=== PATIENT | female | born 1960 | race Caucasian/White ===

== ENCOUNTER → 2016-06-15 | Day surgery (SDC) | payer OTHER ==
[~2016-06-15] VITALS: Ht 160 cm; Wt 61.9 kg
[~2016-06-15] MED LIST: *HYDROmorphone PF 1 MG VIAL PERIprocedural Use ONLY ONE; *morphine SULFATE 8 MG/ML PERIprocedure ONLY ONE; ACETAMINOPHEN 1000 MG/100 ML VIAL IV ONE; BACITRACIN TOP OINT 15 GM TUBE ONE; BUPIVACAINE HCL PF 0.5% 30 ML VIAL ONE; CALC1TAB77 PO; CHLORHEXIDINE GLUCONATE 2 % 1 PACK (2 CLOTHS) TOPICAL PRN; DEXAMETHASONE SOD PHOS 4 MG/ML VIAL ONE; DO NOT ADM ANY ANTICOAGULANT DRUGS PRN; FAMOTIDINE 20 MG/2 ML VIAL ONE; GABA100C4 PO; HYDROmorphone HCL PF 2 MG/ML VIAL IV PRN; INSULIN HUMAN REGULAR 1,000 UNITS/10 ML VIAL SQ PRN; LACTATED RINGER'S 1000 ML INJ 1,000 ML IV ONE; LACTATED RINGER'S 1000 ML INJ 1,000 ML IV SCH; LACTATED RINGER'S 1000 ML IV PRN; LIDOCAINE HCL 2% PF SOLN 10 ML VIAL ONE; METOPROLOL TARTRATE 25 MG TAB PO PRN; MIDAZOLAM HCL 2 MG/2 ML VIAL ONE; MULT-135 PO; NEOMYCIN/POLYMYXIN 1 ML G.U. IRRIGANT TOPICAL ONE; ONDANSETRON HCL 4 MG/2 ML VIAL IV PUSH ONE; ONDANSETRON HCL 4 MG/2 ML VIAL IV PUSH PRN; POVIDONE IODINE 5% (ANTISEPSIS KIT) 4 APPLICATIONS EACH NARE PRN; PROPOFOL 200 MG/20 ML AMP IV ONE; SODIUM CHLORID 0.9% 500 ML IV PRN; TRAZ50TA12 PO; TRIAMCINOLONE ACETONIDE 40 MG/ML VIAL ONE; TURM500C PO; ceFAZolin 1,000 MG/NS 100 ML IV SCH; ceFAZolin INJ 1,000 MG VIAL IV ONE; ePHEDrine/NS 25 MG/5 ML SYR IV ONE
[2016-06-15 09:11] VITALS: BP 108/62; PULSE 61; RESP 16; TEMP 98.6; O2SAT 96
[2016-06-15 16:05] VITALS: BP 92/52; PULSE 63; RESP 20; TEMP 97.3; O2SAT 95
--- NOTE | 2016-06-15 16:40 | EKG ---
Date Performed: 06/15/2016 Time Performed: 08:47:01 PTAGE: 55 years EKG: SINUS BRADYCARDIA BORDERLINE ECG Compared to prior tracing no significant change PREVIOUS TRACING : 01/25/2009 15.12 DOCTOR: Virginia Yip Interpretating Date/Time 06/15/2016 16:37:46
--- NOTE | 2016-06-20 11:42 | MP ---
cc: ASHELY KENT DATE OF SURGERY: 06/15/2016 PREOPERATIVE DIAGNOSIS Closed displaced chronic left scaphoid fracture. POSTOPERATIVE DIAGNOSIS Closed displaced chronic left scaphoid fracture. PROCEDURE 1. Open reduction internal fixation, left scaphoid fracture. 2. Distal radius bone grafting, left wrist to left scaphoid. 3. Interpretation of fluoroscopy, left hand, by the surgeon throughout the procedure. SURGEON Dr. Ashely Kent ANESTHESIA General and local. TOURNIQUET TIME Two hours at 250 mmHg. IMPLANTS Acutrak 3.2 mm screw. INDICATION FOR PROCEDURE Erna Ibanez is a pleasant 55-year-old female who believes that her initial injury occurred on May 14, 2016. She did not present to my office until one month later on 06/11/2016. She was diagnosed with a closed displaced fracture of the scaphoid confirmed by MRI and CT scan. Treatment options were discussed with the patient including surgical intervention versus casting. She elected to proceed with surgical intervention. The risks were explained including but not limited to wound complications, infection, need for additional surgeries, need for removal of the hardware, nonunion, malunion, avascular necrosis, stiffness and pain, and she elected to proceed. DESCRIPTION OF PROCEDURE The patient was identified in the preoperative holding area and the correct extremity was marked. The patient was taken to the operating room where anesthesia was induced. The left upper extremity was prepped and draped in a normal sterile fashion. The scaphoid fracture was identified under fluoroscopy. The tourniquet was inflated to 250 mmHg for two hours. A volar incision was made in line with the glabrous and non-glabrous skin and extended across the wrist. Care was taken to protect the radial artery as well as sensory nerves. The capsule was incised with care taken to protect the vascularity to the dorsal aspect of the scaphoid. The STT joint was identified. There was hematoma at the fracture site with evidence of collapse of the fracture with no evidence of callous formation. The fracture was identified and found to be again in line with a humpback deformity. Initially two 0.045 K-wires were used as joysticks, one in the proximal and one in the distal aspect of the scaphoid. The scaphoid was then reduced under fluoroscopy and there was evidence of bone loss so the decision was made to harvest bone graft from the distal radius. This was used using the Acutrak system with care taken to protect the median nerve and flexor tendons. The bone graft was harvested for later use. This was again confirmed under fluoroscopy not to violate the radial or ulnar cortex of the distal radius. Then the Acutrak guidewire was placed, initially a derotational screw across the scaphoid and then a guidewire for placement of the screw. This was made as center-center as possible, but there was some soft bone in the distal pole of the scaphoid. After multiple attempts of placing the guidewire as close as possible to center-center, an Acutrak screw was placed which had good compression of the fracture. I did lose some reduction of the humpback deformity but the decision was made to leave this in place due to the compression as the bone graft was placed. Again, x-rays of the left hand were used using a mini C-arm and hard copies were placed into the patient's chart which confirmed placement of the Acutrak screw. Under direct visualization there was no prominence of the screw on the articular surface of either side of the scaphoid. The capsule was then closed with PDS. The tourniquet was released. Hemostasis was obtained. The skin was closed with Monocryl and nylon. The patient was placed into a well-padded thumb spica splint and awoken from anesthesia without any complication. 10 cc of 2% lidocaine with no epinephrine were used to perform local anesthesia. The patient will be in a thumb spica splint or cast for up to three months. She may require a bone stimulator. The patient states that she needs to go to work but again there is the importance of being non-weightbearing on the left hand and thumb for healing. Again due to the chronic nature of the fracture the patient may require additional surgeries including scaphoid excision, four corner fusion, or other surgeries. Hopefully compression with the screw will allow the scaphoid to heal. MD AKASH Venegas/SHYAM /8:40 PM /11:21 AM PANTERA
== END | disposition home or self-care (01) ==
LOC: HSDC 08:10
PROVIDERS: ATTEND Orthopaedic Surgery
DX: S62.012A Displaced fracture of distal pole of navicular [scaphoid] bone of left wrist, initial encounter for closed fracture (principal); R94.31 Abnormal electrocardiogram [ECG] [EKG]
CPT/HCPCS: 01830; 25628; 76000; 93005; C1713; J0131; J0690; J1100; J1170; J2250; J2270; J2405; J3010; J7120; L3808; J3301